=== PATIENT | male | born 1995 | race African-American/Black ===

== ENCOUNTER 2025-04-26 14:47 | Emergency (ER) | payer OTHER ==
[~2025-04-26] VITALS: Ht 182.9 cm; Wt 102.0 kg
[2025-04-26 14:55] VITALS: TEMP 36.7; O2SAT 99
[2025-04-26] MEDS ORDERED: DOXY100T2 MT (18:02)
[2025-04-26] MEDS ORDERED: CLIN60LO6 TP (18:02)
[2025-04-26] MEDS ORDERED: IBUP-1455 MT (18:02)
[2025-04-26] MEDS: IBUPROFEN 600MG TABLET PO ONE (18:11)
[2025-04-26 18:17] VITALS: BP 136/94; PULSE 67; RESP 18; O2SAT 99
== END 2025-04-26 18:25 | disposition home or self-care (01) ==
LOC: ER 14:47
DX: L73.2 Hidradenitis suppurativa (principal); Z79.899 Other long term (current) drug therapy
CPT/HCPCS: 99283